=== PATIENT | female | born 1980 | race Caucasian/White ===

== ENCOUNTER 2017-03-14 17:52 | Emergency (ER) | payer MEDICAID ==
[2015-04-14 14:46] VITALS: BMI 33.0
[~2017-03-14 17:52] MED LIST: CELEXA20 MG PO; KLONOPIN0.5 MG PO; RHOGAM PLU300 MCG/SY PO; RYTHMOL225 MG PO; SKELAXIN800 MG PO; TENORMIN25 MG PO; TENORMIN50 MG PO
[2017-03-14 19:19] LABS: BASOPHILS 0.3 % (0-2); EOSINOPHILS 0.9 % (0-7); HEMATOCRIT 40.3 % (36.0-48.0); HEMOGLOBIN 13.2 g/dL (12-16); IMMATURE GRANULOCYTES 0.3 % (0-5); LYMPHOCYTES 25.8 % (15-50); MCHC 32.8 g/dL (31.0-37.0); MCV 88.6 fL (80.0-100.0); MEAN PLATELET VOLUME 11.5 fL (7.4-10.4); MONOCYTES 7.6 % (2-11); NEUTROPHILS 65.1 % (40-80); PLATELET COUNT 235 10x3/uL (130-400); RBC 4.55 10x6/uL (4.00-5.40); RDW 12.7 % (11.5-14.5); WBC 7.6 10x3/uL (4.8-10.8)
== END 2017-03-15 00:20 | disposition home or self-care (01) ==
LOC: D.ER 17:52
PROVIDERS: Emergency Medicine
DX: K52.9 Noninfective gastroenteritis and colitis, unspecified (principal); R10.9 Unspecified abdominal pain

== ENCOUNTER 2020-02-16 21:00 | Emergency (ER) | payer MEDICAID ==
[~2020-02-16] VITALS: Ht 157.5 cm; Wt 84.1 kg
[2020-02-16 21:47] VITALS: Ht 157.5 cm; Wt 84.1 kg
[2020-02-16 22:08] LABS: BASOPHILS 0.3 % (0-2); EOSINOPHILS 6.3 % (0-7); HEMATOCRIT 38.9 % (36.0-48.0); HEMOGLOBIN 12.7 g/dL (12-16); IMMATURE GRANULOCYTES 2.4 % (0-5); LYMPHOCYTES 30.2 % (15-50); MCH 28.6 pg (26.0-34.0); MCHC 32.6 g/dL (31.0-37.0); MCV 87.6 fL (80.0-100.0); MEAN PLATELET VOLUME 10.5 fL (7.4-10.4); MONOCYTES 7.2 % (2-11); NEUTROPHILS 53.6 % (40-80); PLATELET COUNT 231 10x3/uL (130-400); RBC 4.44 10x6/uL (4.00-5.40); RDW 12.5 % (11.5-14.5); WBC 6.6 10x3/uL (4.8-10.8)
[2020-02-16 22:15] LABS: CALC OSMOLALITY 274 mosm/kg (275-300); CALCIUM 8.6 mg/dL (8.5-10.1); CARBON DIOXIDE 32.2 mmol/L (21.0-32.0); CHLORIDE - SERUM 103 mmol/L (98-107); CREATININE - SERUM 0.8 mg/dL (0.6-1.3); GLUCOSE 91 mg/dL (74-106); POTASSIUM - SERUM 3.7 mmol/L (3.5-5.1); SODIUM 138 mmol/L (136-145); UREA NITROGEN 10 mg/dL (7-18); eGFR NON AFRICAN AMERICAN 84 mL/min (90-120)
[2020-02-16 22:21] LABS: ALBUMIN 3.9 g/dL (3.4-5.0); ALKALINE PHOSPHATASE 73 U/L (30-120); ALT (SGPT) 19 U/L (10-68); BILIRUBIN - TOTAL 0.29 mg/dL (0.2-1.3); PROTEIN - SERUM 6.9 g/dL (6.4-8.2)
[2020-02-16 22:33] LABS: HCG SERUM NEGATIVE (NEGATIVE)
[2020-02-16 22:42] LABS: BILIRUBIN NEGATIVE (NEGATIVE); EPITHELIAL CELLS OCC /hpf (0-5); GLUCOSE NEGATIVE (NEGATIVE); KETONE NEGATIVE (NEGATIVE); NITRITE NEGATIVE (NEGATIVE); RED CELLS - URINE >50 /hpf (0-5); SPECIFIC GRAVITY 1.025 (1.005-1.020); UROBILINOGEN NORMAL (NORMAL); WHITE CELLS - URINE 0-5 /hpf (NEGATIVE)
[2020-02-16] MEDS ORDERED: PROVERA10 MG PO (23:11)
[2020-02-17 00:56] VITALS: BP 109/69
== END 2020-02-17 00:39 | disposition home or self-care (01) ==
LOC: D.ER 21:00
PROVIDERS: Family Medicine
DX: N94.6 Dysmenorrhea, unspecified (principal); R42 Dizziness and giddiness

== ENCOUNTER 2020-02-19 15:43 | Emergency (ER) | payer MEDICAID ==
[~2020-02-19] VITALS: Ht 157.5 cm; Wt 84.1 kg
[~2020-02-19 15:43] MED LIST changes: +PROVERA10 MG PO
[2020-02-19 16:01] VITALS: Ht 157.5 cm; Wt 84.1 kg
[2020-02-19 17:06] LABS: BASOPHILS 0.4 % (0-2); EOSINOPHILS 1.3 % (0-7); HEMATOCRIT 36.2 % (36.0-48.0); HEMOGLOBIN 11.8 g/dL (12-16); IMMATURE GRANULOCYTES 0.2 % (0-5); LYMPHOCYTES 31.5 % (15-50); MCH 28.7 pg (26.0-34.0); MCHC 32.6 g/dL (31.0-37.0); MCV 88.1 fL (80.0-100.0); MEAN PLATELET VOLUME 10.5 fL (7.4-10.4); MONOCYTES 10.3 % (2-11); NEUTROPHILS 56.3 % (40-80); PLATELET COUNT 217 10x3/uL (130-400); RBC 4.11 10x6/uL (4.00-5.40); RDW 12.4 % (11.5-14.5); WBC 5.6 10x3/uL (4.8-10.8)
[2020-02-19 17:06] LABS: BACTERIA FEW /hpf (NEGATIVE); EPITHELIAL CELLS 0-5 /hpf (0-5); RED CELLS - URINE >50 /hpf (0-5); WHITE CELLS - URINE 0-5 /hpf (NEGATIVE)
[2020-02-19 17:19] LABS: CALC OSMOLALITY 278 mosm/kg (275-300); CALCIUM 8.5 mg/dL (8.5-10.1); CARBON DIOXIDE 29.5 mmol/L (21.0-32.0); CHLORIDE - SERUM 107 mmol/L (98-107); CREATININE - SERUM 0.8 mg/dL (0.6-1.3); GLUCOSE 82 mg/dL (74-106); POTASSIUM - SERUM 3.4 mmol/L (3.5-5.1); SODIUM 141 mmol/L (136-145); UREA NITROGEN 9 mg/dL (7-18); eGFR NON AFRICAN AMERICAN 84 mL/min (90-120)
[2020-02-19 17:28] LABS: ALBUMIN 3.6 g/dL (3.4-5.0); ALKALINE PHOSPHATASE 57 U/L (30-120); ALT (SGPT) 20 U/L (10-68); BILIRUBIN - TOTAL 0.27 mg/dL (0.2-1.3); PROTEIN - SERUM 6.2 g/dL (6.4-8.2)
[2020-02-19 17:47] LABS: HCG SERUM NEGATIVE (NEGATIVE)
[2020-02-19] MEDS ORDERED: HYDROCODON-ACE1 EAC7 PO (20:53)
[2020-02-19] MEDS ORDERED: SPRINTEC 28 DA1 EAC1 PO (20:53)
[2020-02-19 21:26] VITALS: BP 108/76
== END 2020-02-19 21:24 | disposition home or self-care (01) ==
LOC: D.ER 15:43
PROVIDERS: Family Medicine
DX: R93.89 Abnormal findings on diagnostic imaging of other specified body structures (principal); N93.9 Abnormal uterine and vaginal bleeding, unspecified

== ENCOUNTER 2020-02-20 16:41 | Emergency (ER) | payer MEDICAID ==
[~2020-02-20] VITALS: Ht 157.5 cm; Wt 84.1 kg
[~2020-02-20 16:41] MED LIST changes: +HYDROCODON-ACE1 EAC7 PO; +SPRINTEC 28 DA1 EAC1 PO
[2020-02-20 16:50] VITALS: Ht 157.5 cm; Wt 84.1 kg
[2020-02-20 18:05] LABS: BILIRUBIN NEGATIVE (NEGATIVE); GLUCOSE NEGATIVE (NEGATIVE); KETONE NEGATIVE (NEGATIVE); NITRITE NEGATIVE (NEGATIVE); SPECIFIC GRAVITY 1.025 (1.005-1.020); UROBILINOGEN NORMAL (NORMAL)
[2020-02-20 18:10] LABS: INR 0.99 (0.85-1.17); PROTIME 13.1 SECONDS (11.6-15.0)
[2020-02-20 18:11] LABS: BACTERIA FEW /hpf (NEGATIVE); EPITHELIAL CELLS 0-5 /hpf (0-5); WHITE CELLS - URINE 0-5 /hpf (NEGATIVE)
[2020-02-20 18:14] LABS: CALCIUM 8.3 mg/dL (8.5-10.1); CARBON DIOXIDE 30.7 mmol/L (21.0-32.0); CHLORIDE - SERUM 106 mmol/L (98-107); CREATININE - SERUM 0.8 mg/dL (0.6-1.3); GLUCOSE 72 mg/dL (74-106); POTASSIUM - SERUM 3.6 mmol/L (3.5-5.1); SODIUM 140 mmol/L (136-145); eGFR NON AFRICAN AMERICAN 84 mL/min (90-120)
[2020-02-20 18:20] LABS: ALBUMIN 3.5 g/dL (3.4-5.0); ALKALINE PHOSPHATASE 56 U/L (30-120); BILIRUBIN - TOTAL 0.27 mg/dL (0.2-1.3); PROTEIN - SERUM 6.3 g/dL (6.4-8.2)
[2020-02-20 18:22] LABS: ALT (SGPT) 13 U/L (10-68); CALC OSMOLALITY 277 mosm/kg (275-300); UREA NITROGEN 12 mg/dL (7-18)
[2020-02-20 18:30] LABS: BASOPHILS 0.5 % (0-2); EOSINOPHILS 1.3 % (0-7); HEMATOCRIT 34.3 % (36.0-48.0); HEMOGLOBIN 11.1 g/dL (12-16); IMMATURE GRANULOCYTES 0.2 % (0-5); LYMPHOCYTES 29.8 % (15-50); MCH 28.6 pg (26.0-34.0); MCHC 32.4 g/dL (31.0-37.0); MCV 88.4 fL (80.0-100.0); MEAN PLATELET VOLUME 10.5 fL (7.4-10.4); MONOCYTES 5.6 % (2-11); NEUTROPHILS 62.6 % (40-80); PLATELET COUNT 227 10x3/uL (130-400); RBC 3.88 10x6/uL (4.00-5.40); RDW 12.4 % (11.5-14.5); WBC 6.1 10x3/uL (4.8-10.8)
[2020-02-20 21:29] VITALS: BP 106/76
[2020-02-21] MEDS ORDERED: HYDROCODON-ACE1 EAC7 PO (14:13)
== END 2020-02-20 21:29 | disposition home or self-care (01) ==
LOC: D.ER 16:41
PROVIDERS: Family Medicine
DX: R58 Hemorrhage, not elsewhere classified (principal); R93.89 Abnormal findings on diagnostic imaging of other specified body structures

== ENCOUNTER 2020-02-21 08:01 | Day surgery (SDC) | payer MEDICAID ==
[~2020-02-21] VITALS: Ht 157.5 cm; Wt 84.1 kg
--- NOTE | ~2020-02-21 | OP ---
PATIENT NAME: HANH REDD MEDICAL RECORD: [id number] :78 LOCATION:[facility] ADMISSION DATE: SURGEON: TARIQ FAIR MD DATE OF OPERATION: 02/21/2020 PREOPERATIVE DIAGNOSES: Menorrhagia. POSTOPERATIVE DIAGNOSIS: Menorrhagia. PROCEDURE: Hysteroscopy, dilation and curettage. SURGEON: Tariq Fair MD ANESTHESIA: General endotracheal. INTRAVENOUS FLUIDS: Per anesthesia record. HYSTEROSCOPIC FLUID LOSS: Approximately 50 cc of 0.9 normal saline. FINDINGS: 1. Grossly proliferative appearing endometrium. 2. Grossly normal external genitalia and cervix. SPECIMENS: Endometrial curettings. COMPLICATIONS: None apparent. PROCEDURE IN DETAIL: The patient was taken to the operating room where general anesthesia was achieved without difficulty. The patient prepped and draped in normal sterile fashion in the dorsal lithotomy position in the [facility]. The bladder was drained of approximately 100 cc of clear straw colored urine. At this point, a Graves speculum was placed in the vagina and the cervix was grasped on its anterior lip with a single tooth tenaculum. The patient was sounded to approximately 9 cm dilation to approximately 5 mm was performed and hysteroscope was introduced into the endometrial canal. Following survey of the endometrium, further dilation of approximately 9 mm was performed and a #1 curette was used to perform curettage in all 4 quadrants with return of proliferative appearing tissue. Minimal bleeding was noted from the cervical os following the procedure, the tenaculum was removed as well as speculum. The patient tolerated procedure well, transferred to postanesthesia recovery stable without incident. TRANSINT:[id number] Voice Confirmation ID: [id number] DOCUMENT ID: [id number] TARIQ FAIR MD CC: [id number] DICTATION DATE: 02/29/20 0650 BASIC SCIENCES PROFESSOR: 02/29/20 0842 [facility] 02/21/20 [id number] [place] [address]
--- NOTE | 2020-02-21 08:55 | NUR ---
SALINE LOCK STARTED BY SHARON CHAVEZ RN IN LEFT HAND AT 0845 WITH 18G CATH WITHOUT DIFFICULTY. OUTPT H&P COMPLETED. CONSENTS SIGNED AND WITNESSED FOR SURGERY, ANESTHESIA AND BLOOD TRANSFUSION. PT INFORMED SHE WILL BE THIRD SURGICAL CASE THIS AM. WILL LET PT KNOW ROXANNE WHEN SURGERY IS PROJECTED. PT SPOUSE IN ROOM. SIDERAILS UP X 2, CALL LIGHT IN REACH.
[2020-02-21 08:56] VITALS: BP 96/59; BMI 33.9
--- NOTE | 2020-02-21 10:15 | NUR ---
SLEEPING ON RIGHT SIDE. RESPIRATIONS EVEN.
--- NOTE | 2020-02-21 10:17 | NUR ---
DR JOHN HERE TO VISIT PT. PER ELEVATOR SUPERVISOR THE SURGERY IS PLANNED FOR APPROX 1030.
[2020-02-21 10:34] VITALS: Ht 157.5 cm; Wt 84.1 kg
--- NOTE | 2020-02-21 10:45 | NUR ---
OR CALLED TO PRE-OP PATIENT. LR HUNG AND RUNNING AT 50 ML/HR. VALIUM AND TYLENOL WERE GIVEN PO. PT WITH HX OF TACHYCARDIA- LOOKED UP REMAINING MEDICATIONS AND NOTED POSSIBLE DYSRYTHMIAS OR TACHYCARDIA SIDE EFFECTS. Ashtyn BROWN CRNA NOTIFIED. T.O. RECIEVED TO [facility]. PT DESIRES SCOPOLAMINE PATCH. VALIUM WAS GIVEN FOR ANXIETY.
--- NOTE | 2020-02-21 11:20 | NUR ---
TO OR VIA BED WITH KNAPSACK SPRAYER AND RR ROOM RN. REMAINS IN ROOM.
--- NOTE | 2020-02-21 12:05 | NUR ---
RECEIVED PT FROM ICU. ALERT BUT DROWSY, UNSURE WHAT TOWN OR HOSPITAL SHE WAS IN. RECOGNIZED THIS RN, KNOWS PRESIDENT [facility]. DESIRED TO CONTINUE TO WEAR O2 MASK, EXPLAINED TO PT THAT PULSE OX OXYGEN LEVEL IS GOOD AND SHE DOES NOT NEED 02 AT THIS TIME. EXPLAINED THAT O2 IS LIKE A MEDICATION AND IS GIVEN IF NEEDED. INSTRUCTED PT SHE COULD WEAR MASK IF SHE DESIRED. MASK OFF AT THIS TIME. SCANT BLOOD NOTED ON PAD. CLEAN PAD PLACED. IV LR INFUSING LEFT HAND, PLACED ON ALARIS PUMP AT 50 ML/HR. SIDERAILS UP X 2, CALL LIGHT IN REACH.
[2020-02-21 12:40] VITALS: BP 91/58
--- NOTE | 2020-02-21 12:41 | NUR ---
RECEIVED PT FROM ICU. ALERT BUT DROWSY, UNSURE WHAT TOWN OR HOSPITAL SHE WAS IN. RECOGNIZED THIS RN, KNOWS PRESIDENT OF [facility]. DESIRED TO CONTINUE TO WEAR O2 MASK, EXPLAINED TO PT THAT PULSE OX OXYGEN LEVEL IS GOOD AND SHE DOES NOT NEED 02 AT THIS TIME. EXPLAINED THAT O2 IS LIKE A MEDICATION AND IS GIVEN IF NEEDED. INSTRUCTED PT SHE COULD WEAR MASK IF SHE DESIRED. MASK OFF AT THIS TIME. SCANT BLOOD NOTED ON PAD. CLEAN PAD PLACED. IV LR INFUSING LEFT HAND, PLACED ON ALARIS PUMP AT 50 ML/HR. SIDERAILS UP X 2, CALL LIGHT IN REACH.
--- NOTE | 2020-02-21 13:05 | NUR ---
DROWSY, FALLS ASLEEP BUT OPENS EYES IMMEDIATELY WHEN SPOKEN TO. VS OBTAINED, CLEAN EVY-PAD PLACED, SCANT LIGHT RED BLOOD ON PAD. 8/10 CRAMPING. WILL CONTACT MD FOR ORDER.
--- NOTE | 2020-02-21 13:29 | NUR ---
TALKED TO DR JOHN REGARDING PT C/O PAIN. ORDERS RECEIVED. MD SAYS HE TALKED TO SPOUSE.
[2020-02-21 13:30] VITALS: BP 101/59
--- NOTE | 2020-02-21 13:33 | NUR ---
OFF L&D PRIOR TO WRITTING V.O. V.O. ENTERED FOR .
[2020-02-21 13:45] VITALS: BP 98/59
--- NOTE | 2020-02-21 13:58 | NUR ---
TO ROOM TO GIVE PATIENT NORCO 5 MG. STATES "I DON'T WANT THAT NOW, CAN'T I HAVE DILAUDID?" EXPLAINED TO PATIENT THAT MD SAID NO IV MEDS AND THAT SHE COULD HAVE NORCO 5 MG WHILE HERE X 1. PT DOES NOT WANT NOW. MAY WANT PRIOR TO DC. WILL EXPLAIN TO PATIENT SHE CAN DREDGE MATE RX FROM HER PHARMACY AND TAKE AT THAT TIME. ORIENTED TO PERSON, PLACE AND TIME. HAS TAKEN PO FLUIDS AND SOLIDS FOOD WITHOUT N&V. SCOPOLAMINE PATCH STILL IN PLACE. REQUESTS WORK EXCUSE TO BE OFF WORK TOMORRO. DISCUSSED NO SEX, TAMPONS OR DOUCHING PRIOR TO APPROVAL FROM MD AT VISIT IN TWO WEEKS. STATES "THAT'S NOT GOING TO HAPPEN, MAYBE A WEEK." EXPLAINED RISKS OF INFECTION. IN ROOM. ENCOURAGED TO REST, EXPLAINED SHE CAN GO HOME WHEN READY ONCE SHE HAS VOIDED. SIDERAILS UP X 2, CALL LIGHT IN REACH.
[2020-02-21] MEDS ORDERED: HYDROCODON-ACE1 EAC7 PO (14:13)
--- NOTE | 2020-02-21 14:30 | NUR ---
REQUESTED IV BE DC'D TO GET UP TO VOID. UP TO BATHROOM. SAYS SHE FEELS LIKE SHE HAS TO GO. UNABLE TO VOID AT THIS TIME AFTER TURNING ON WATER AND TRY TO TECHNIQUES TO STIMULATE VOIDING. APPROX 10 ML BLOOD NOTED IN [place] HAS. WAS NOT ABLE TO VOID AT THIS TIME. ENCOURAGEMENT GIVEN THAT THIS IS NOT UNCOMMAN THAT SHE CAN TRY AGAIN IN A LITTLE WHILE. FRESH WATER GIVEN. HAS CRANBERRY JUICE AT BEDSIDE. REQUESTED NORCO 5 MG NOW FOR 5/10 CRAMPING. STATES "IT'S THE SAME BEFORE." TOLD PT SHE ORIGINALLY TOLD ME IT WAS 8. SHE SAYS SHE DIDN'T REMEMBER SAYING THAT.
--- NOTE | 2020-02-21 14:35 | NUR ---
NORCO 5 MG GIVEN PO FOR RELIEF OF CRAMPING PER PT REQUEST.
--- NOTE | 2020-02-21 15:27 | NUR ---
VOIDED 100 ML URINE, SMALL AMOUNT OF BLOODY DC NOTED. PT READY TO GO HOME. STARTING TO FEEL DROWSY. EXPLAINED THAT WAS THE NORCO THAT CAN CAUSE DROWSINESS. WENT TO GET CAR. DC'D VIA WHEELCHAIR TO CAR AFTER REVIEWING DC INSTRUCTIONS TO INCLUDE POSTOP D&C INSTRUCTIONS, S&S INFECTION, PRECAUTIONS, DANGER SIGNS, MEDICATION ADMINISTRATION AND FOLLOW-UP. NOTE WAS GIVEN TO RETURN TO WORK ON SATURDAY. INSTRUCTED NOT TO DRIVE WHILE TAKING NARCOTICS OR OTHER MEDS THAT MAY CAUSE DROWSINESS. STATES "I'M NOT TAKING ANYMORE TODAY." ENCOURAGE TO GO HOME AND SLEEP. DRINK PLENTY OF FLUIDS, VOID FREQUENTLY. VERBALIZED UNDERSTANDING.
== END 2020-02-21 15:27 | disposition home or self-care (01) ==
LOC: D.LD 08:01 → D.OPS 08:01 → D.LDO 08:01 → D.OPS 15:27 → D.LDO 15:27 → D.LD 15:27 → EDSTATUS 15:38
PROVIDERS: ATTEND Obstetrics & Gynecology
DX: E28.2 Polycystic ovarian syndrome (principal); N92.0 Excessive and frequent menstruation with regular cycle